=== PATIENT | female | born 2000 | race Caucasian/White ===

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

== ENCOUNTER 2022-09-18 11:42 | Outpatient (CLI) | payer BC, SELFPAY ==
[2022-09-18 13:01] LABS: Cholesterol 234 mg/dL (0-200); HDL Direct 45 mg/dL; Triglycerides 139 mg/dL (<150)
[2022-09-18 13:03] LABS: Hemoglobin A1C 5.4 % (<5.7)
[2022-09-18 13:14] LABS: LDL Cholesterol Direct 147 mg/dL
[2022-09-18 13:15] LABS: Beta HCG Quantitative < 2.39 mIU/ML
[2022-09-18 13:33] LABS: Thyroid Stimulating Hormone Reflex 0.793 uIU/mL (0.465-4.68)
[2022-09-21 12:02] LABS: DHEA-Sulfate 336 mcg/dL (18-391); Insulin Level Total 10.9 uIU/mL (<=19.6)
[2022-09-23 12:32] LABS: Testosterone Free 11.8 pg/mL (0.1-6.4); Testosterone Total 78 ng/dL (2-45)
[2022-09-23 16:30] LABS: Anti Mullerian Hormone,Female 10.76 ng/mL (1.02-14.63)
[2022-09-25 04:56] LABS: FSH 6.8 mIU/mL (***); Progesterone 0.6 ng/mL (***); Prolactin 11.5 ng/mL (***)
[2022-09-25 21:22] LABS: Estradiol, Ultrasensitive 41 pg/mL
== END 2022-09-18 11:43 | disposition home or self-care (01) ==
LOC: ANHLAB 11:45
PROVIDERS: Visit Provider Obstetrics & Gynecology
DX: E66.9 Obesity, unspecified (principal); N92.6 Irregular menstruation, unspecified
CPT/HCPCS: 36415; 80061; 82627; 82670; 83001; 83036; 83498; 83525; 84144; 84146; 84402; 84403; 84443; 84702